=== PATIENT | male | born 2005 | race Caucasian/White ===

== ENCOUNTER 2023-12-20 22:51 | Emergency (ER) | payer MEDICAID, OTHER ==
[~2023-12-20] VITALS: Ht 177.8 cm; Wt 83.9 kg
[~2023-12-20 22:51] MED LIST: AMOX875T2 PO
[2023-12-20] MEDS: IBUPROFEN 800 MG TABLET PO ONE (23:30)
[2023-12-20] MEDS ORDERED: IBUP-1957 PO (23:32)
[2023-12-20 23:53] VITALS: BP 110/70; TEMP 98.1; O2SAT 99
[2023-12-21] MEDS ORDERED: IBUPROFEN 800 MG TABLET ONE (02:07)
== END 2023-12-20 23:54 | disposition home or self-care (01) ==
LOC: ER 22:55
DX: S46.212A Strain of muscle, fascia and tendon of other parts of biceps, left arm, initial encounter (principal); Z79.899 Other long term (current) drug therapy; W19.XXXA Unspecified fall, initial encounter; Y93.89 Activity, other specified; Y92.89 Other specified places as the place of occurrence of the external cause; Y99.8 Other external cause status
CPT/HCPCS: A4606; A4663

== ENCOUNTER 2025-08-12 23:20 | Emergency (ER) | payer OTHER ==
[~2025-08-12] VITALS: Ht 177.8 cm; Wt 86.2 kg
[~2025-08-12 23:20] MED LIST changes: +IBUP-1957 PO
[2025-08-12 23:23] VITALS: BP 129/83
[2025-08-13] MEDS ORDERED: PRED20TA PO (00:05)
[2025-08-13] MEDS ORDERED: AMOX-319 PO (00:05)
[2025-08-13 00:29] VITALS: BP 125/80; O2SAT 98
== END 2025-08-13 00:21 | disposition home or self-care (01) ==
LOC: ER 23:27
DX: K12.2 Cellulitis and abscess of mouth (principal); R09.81 Nasal congestion; Z79.52 Long term (current) use of systemic steroids
CPT/HCPCS: 70360; A4606; A4663